=== PATIENT | male | born 1985 | race Caucasian/White ===

== ENCOUNTER → 2025-02-11 11:32 | Outpatient (REF) | payer OTHER, SELFPAY | LOC: DHSLP 11:32 | PROVIDERS: ATTENDING PHYSICIAN Internal Medicine Critical Care Medicine; FAMILY PHYSICIAN Nurse Practitioner Acute Care | DX: G47.33 Obstructive sleep apnea (adult) (pediatric) (principal) | CPT/HCPCS: 95800 ==